=== PATIENT | male | born 1990 | race Caucasian/White ===

== ENCOUNTER → 2017-09-08 | Emergency (ER) | payer BC ==
[~2017-09-08] VITALS: Ht 180.3 cm; Wt 68.0 kg
[~2017-09-08] MED LIST: BACTRIM DS TAB1 EACH PO; CEPHALEXIN500 MG PO; IBUPROFEN600 MG PO; NORCO 5-325 TA1 EACH PO; PENICILLIN V P500 MG PO; TYLENOL325 MG PO; ULTRAM50 MG PO; VENTOLIN HFA18 GM INH
== END ==
LOC: ED 05:58
DX: S61.231A Puncture wound without foreign body of left index finger without damage to nail, initial encounter (principal); L08.9 Local infection of the skin and subcutaneous tissue, unspecified; F17.200 Nicotine dependence, unspecified, uncomplicated; W22.8XXA Striking against or struck by other objects, initial encounter; Z79.899 Other long term (current) drug therapy
CPT/HCPCS: 73140; 87070; 87077; 87186; 90471; 90715; 99283

== ENCOUNTER 2017-10-14 17:41 | Emergency (ER) | payer BC ==
[~2017-10-14] VITALS: Ht 180.3 cm; Wt 69.8 kg
[2017-10-15] MEDS ORDERED: HYDROCODON-ACE1 EA10 PO ×2 (10:15)
== END 2017-10-14 21:37 | disposition home or self-care (01) ==
LOC: ED 17:41
DX: S61.233A Puncture wound without foreign body of left middle finger without damage to nail, initial encounter (principal); L08.9 Local infection of the skin and subcutaneous tissue, unspecified; F17.200 Nicotine dependence, unspecified, uncomplicated; W22.8XXA Striking against or struck by other objects, initial encounter
CPT/HCPCS: 85025; 87070; 87077; 87184; 96365; 99283; J3370

== ENCOUNTER 2017-10-15 10:01 | Inpatient (IN) | payer BC ==
[~2017-10-15] VITALS: Ht 180.3 cm; Wt 69.8 kg
[2017-10-15] MEDS ORDERED: HYDROCODON-ACE1 EA10 PO ×2 (10:15)
--- NOTE | 2017-10-15 12:20 | NUR ---
PT TO FLOOR. AIR TRAFFIC CONTROL SPECIALIST CHECKED IN PT. IVF STARTED. LUNCH ORDERED. HX AND SHORT ADMIT DONE.
--- NOTE | 2017-10-15 13:34 | NUR ---
PT RATES PAIN 7/10 IN HAND. OUTLINED AREA CONTINUES TO BE RED. FINGER QUIT SWOLLEN. NO LONGER LEAKING. STATES THAT IT WAS WHEN IT WAS COVERED AT HOME WITH BACITRACIN.
--- NOTE | 2017-10-15 15:56 | NUR ---
CALLED DR JOHNSON REGARDING PAIN NOT WELL CONTROLLED BY [facility]. CHANGED ORDER TO 1 TAB 10\325 Q4 PRN FOR PAIN.
--- NOTE | 2017-10-15 16:15 | NUR ---
PT'S VITALS AND I&O'S TAKEN AND DOCUMENTED. PT STATES NO NEEDS AT THIS TIME. INFORMED PT TO LET ME KNOW IF HE NEEDS ANYTHING. CALL LIGHT IS IN REACH.
--- NOTE | 2017-10-15 17:06 | NUR ---
PT REPORTS PAIN OF 7/10 IN LEFT HAND. PAIN MED ADMINISTERED. PT RESTING COMFORTABLY IN BED WITH FAMILY IN ROOM.
--- NOTE | 2017-10-15 17:26 | NUR ---
PT GIVEN 1 TAB NORCO. REDNESS HAS INCREASED PAST LINE IN UNDERARM AREA. PT STATES THAT THE FINGER ITSELF FEELS LESS TIGHT THOUGH. MULTIPLE FAMILY MEMBERS IN ROOM.
--- NOTE | 2017-10-15 18:13 | NUR ---
ANTIOBIOTIC ADMINISTERED. PT REPORTS LEFT HAND IS ONLY PAINFUL WHEN TOUCHED. EATING DINNER WITH FAMILY IN ROOM.
--- NOTE | 2017-10-15 18:24 | NUR ---
PT ADMITTED THIS AFTERNOON. REDDENED AREA OUTLINED ON LEFT ARM. GIVEN NORCO X2 FOR PAIN. INDEPENDENT IN ROOM. FAMILY FREQUENTLY IN ROOM.
--- NOTE | 2017-10-15 20:55 | NUR ---
PT RESTING, NO C/O PAIN, KPAD AT BEDSIDE TABLE. LEFT ARM ELEVATED INPILLOWS, AREA RED, MARKED. NEW RX FOR NITCOTINE PATCHA ND LOZENGERS OBTAINED VIA PHONE FROM DR JOHNSON.
--- NOTE | 2017-10-15 23:06 | NUR ---
MEDICATED WITH NORCO 10/325 1 TAB, C/O 03/05 LEFT HAND. LEFT HAND REDDENED, EDGES MARKED, EDEMA L HAND, GOOD CMS. WARM PAD TO ARM. NO OTHER REQUESTS
--- NOTE | 2017-10-16 01:34 | NUR ---
awake, watching tv. left vincent redness, hand edema w/o changes, warm pad off at this requests, hand elevatred in pillows, no c/o pain. in room
--- NOTE | 2017-10-16 06:10 | NUR ---
PT SLEPT MOST OF THIS SHIFT. wAS MEDICATED WITH nORCO 10/325 X1. PAIN RELIEF STATED. ivf INFUSING, NO C/O ADVERSE REACTION TO VANCOMYCIN AND UNASYN IV ABX. LEFT HAND STILL EDEMATOUS, 1+. NON PITTING, REDNESS FROM TIP OF FINGERS TO ABOVE AXILLARY AREA. AREA MARKED. TENDER AND WARM TO TOUCH, RED-PINKISH COL[place]. ELEVATED WITH PILLOWS AND K PAD TO AREA . KPAD OFF AT THIS TIME. USED FOR SEVERAL HOURS LAST NIGHT. HAD NICOTINE LOZENGERS, PT STATED HE WOULD RATHER TRTY NICORETTE GUM THIS AM. PT WILL RECEIVE NICORETTE PATCH THIS AM. NPO SINCE MIDNITE, NO FURTHER REQUESTS
--- NOTE | 2017-10-16 08:20 | NUR ---
pt complained of pain 6/10in left arm. gave 1 tab norco 10/325 po with small sip of water.
--- NOTE | 2017-10-16 09:26 | NUR ---
PT RESTING IN BED WITH IN ROOM.
--- NOTE | 2017-10-16 10:19 | NUR ---
PT STATES THAT HIS ONLY NEED IS TO SEE THE DOCTOR. PT HAS NO OTHER NEEDS AT THIS TIME. CALL LIGHT IS IN REACH.
--- NOTE | 2017-10-16 10:36 | CONS ---
[facility] [address], [place] [address] Signed DATE OF CONSULTATION: HISTORY OF PRESENT ILLNESS: Mr. Thomson is a 27-year-old white male, who apparently had a blunt force/penetrating injury to his left long finger in the midportion of the middle phalanx about a week ago with a Dodson drill bit. He apparently was in the emergency room a day or two ago. He was given some vancomycin as he had recently been presented to the ER with questionable MRSA in another area. An attempt apparently was made to michell the finger and minimal if any fluid was recovered. It was sent for culture, but nothing has grown as of yet. Be that as it may, he presented again today because he thinks the swelling and the redness are getting worse. He denies any other intercurrent injury. Says he is unaware that he has had a fever, chills, or any other systemic symptoms. PAST MEDICAL HISTORY: With the exception of his previous infections, he says he is in good general health. He says he does not take any medications other than occasional ibuprofen, and he is unaware that he has any medical allergies. REVIEW OF SYSTEMS: Negative. PHYSICAL EXAMINATION: GENERAL: He is alert, oriented, really in no distress. HEAD, EARS, EYES, NOSE, AND THROAT: Unremarkable. NECK: Supple. CHEST: Clear. CARDIAC: Reveals a regular rhythm. ABDOMEN: Benign. EXTREMITIES: His left long finger has an area of redness and swelling over the radial aspect of the midportion of the soft tissue overlying the middle phalanx. There is really no fluctuance, although there is some swelling here. There is no tenderness over the flexor tendon sheath. He is actually able to flex and extend his finger at the MCP, the PIP, and the DIP joint without any significant increase in his discomfort. He has good sensation distally in the finger. He does have significant cellulitis spreading up his arm almost to the area of the lateral epicondylar area. Again, he has a full range of motion of the elbow, wrist, and hand. IMPRESSION: He has a penetrating wound with a secondary cellulitis. I have told at the present time he does not appear to have flexor tenosynovitis. I told him that I will plan on admitting him, keeping him on the IV antibiotics, and see how he does over the next day Electronically Signed By: GRADY JOHNSON MD 10/16/17 1036 PATIENT NAME: JADA THOMSON CONSULTATION DATE OF : 89 PHYSICIAN: GRADY JOHNSON MD REPORT #: [id number] REPORT IS CONFIDENTIAL AND NOT TO BE RELEASED WITHOUT AUTHORIZATION [facility] [address], [place] [address] Signed or two. I told him that if he deteriorates, he may require surgical intervention, but at the moment, it does not appear that that is the case based on today's examination. MD AGGIE WeaverB/EMAL /[id number] Electronically Signed By: GRADY JOHNSON MD 10/16/17 1036 PATIENT NAME: JADA THOMSON CONSULTATION DATE OF : 89 PHYSICIAN: GRADY JOHNSON MD REPORT #: [id number] REPORT IS CONFIDENTIAL AND NOT TO BE RELEASED WITHOUT AUTHORIZATION
--- NOTE | 2017-10-16 13:27 | NUR ---
landscape laborer in room with pt.
--- NOTE | 2017-10-16 13:35 | NUR ---
pt complained of pain in left arm 03/05. gave 1 tab norco 10/325 po.
--- NOTE | 2017-10-16 15:11 | NUR ---
pt resting in bed. rating pain 3/10 in left arm. family at bedside.
--- NOTE | 2017-10-16 17:39 | NUR ---
PTS IV STARTED LEAKING. DC'D IV AND STARTED NEW IV IN RIGHT FOREARM. PT TOLERATED WELL.
--- NOTE | 2017-10-16 17:54 | NUR ---
pt complained of pain 03/05. gave 1 tab norco 10/325 po. redness in left arm improving. continues to elevated and use k pad.
--- NOTE | 2017-10-16 18:27 | NUR ---
PT SET UP FOR SHOWER. NO OTHER NEEDS AT THIS TIME. INFORMED PT TO CALL WHEN FINISHED.
--- NOTE | 2017-10-16 18:50 | NUR ---
redness improving to left arm. pt continues to elevated and use k pad. norco given for pain. possible dc home tomorrow on oral antibiotics.
--- NOTE | 2017-10-16 21:14 | NUR ---
visiting, left arm decreased redness and decreased edema l hand. new iv site rfa intact, infusing ivf w/o problems, no c/o pain at this time. coop with assessment
--- NOTE | 2017-10-16 22:35 | NUR ---
medicated with norco 10?325 po, c/o 03/05 left arm and left mid finger pain. Visiting with family
--- NOTE | 2017-10-16 22:40 | NUR ---
WARM BLANKET GIVEN ON REQUEST
--- NOTE | 2017-10-17 00:02 | NUR ---
Awakes easily, pain relief stated, left arm elevated in pillows, decreased redness and edema. no other requests
--- NOTE | 2017-10-17 05:55 | NUR ---
medicaTED WITH NORCO 10/325 C/O LEFT HAND AND ARM PAIN.
--- NOTE | 2017-10-17 06:03 | NUR ---
PT RESTING, NO RESP DISTRESS. HAS BEEN MEDICATED WITH NORCO 10/325MG TWO TIMES, WITH GOOD PAIN RELIEF. PAIN MEDS EFFECTIVE. LEFT ARM ELEVATED WITH PILLOWS, DECREASED REDNESS, LEFT HAND AND LEFT MID FINGER DISTAL PHALANGES AREA EDEMATOUS, TENDER. NO DRAINAGE. IVF PATENT, INFUSING LR AT 100CC/HR, VANCOMYCIN AND UNASYN ABX. TOLERATING WELL, NO C/O ADVERSE REACTION TO ABX INFUSING. PT ON REGULAR DIET, ATE PIZZA WITH FRIENDS, NO EMESIS, USED K PAD FOR ABOUT ONE HOUR, NO C/O PAIN LEFT ARM
--- NOTE | 2017-10-17 08:25 | NUR ---
LEFT HAND REDNESS SIGNIFICANTLY IMPROVED FROM MARKED EDGES. NO REDNESS ON ARM. MIDDLE FINGER OF LEFT HAND SWOLLEN AND RED AROUND PUNCTURE HARRISON. SOME REDNESS TO LEFT HAND AND SWELLING. TENDER TO TOP OF HAND. PAIN 4/10 NOW. SITTING UP AT EDGE OF BED EATING BREAKFAST NOW. VISITORS AT BEDSIDE.
--- NOTE | 2017-10-17 10:21 | NUR ---
PATIENT TOOK A SHOWER THIS MORNING. INDEPENDENT. ATE BREAKFAST. HIS FRIENDS BROUGHT HIM SOME FOOD FOR AND EARLY LUNCH. BROUGHT HIM MORE ICE WATER.
[2017-10-17] MEDS ORDERED: CLEOCIN HCL300 MG PO ×2 (12:41)
--- NOTE | 2017-10-20 07:21 | DS ---
[facility] [address], [place] [address] Signed ADMISSION DATE: 10/15/2017 DISCHARGE DATE: 10/17/2017 FINAL DIAGNOSIS AT THE TIME OF DISCHARGE: Cellulitis left hand and arm following a culture wound. HISTORY OF PRESENT ILLNESS: The patient is a young male, who was doing well until couple of days before admission. He indicates he was helping a friend do some construction work when he penetrated the mid portion of his left long finger with a tip of Dodson screwdriver head. He was actually seen in the emergency room I think a day or two before admission with some redness and swelling. Attempt was made to do an I and D in the ER, which apparently was not fruitful. He was placed on antibiotics and sent home. He then returned on the with worsening redness and swelling. At that time, he appeared to have cellulitis in his hand, his arm, his forearm, and all the way up into his axilla. There is no evidence of flexor tenosynovitis. HOSPITAL COURSE: The patient was admitted, placed on vancomycin and Unasyn. His cellulitis rapidly resolved. By today, all the redness is gone. He has minimal discomfort on the dorsal aspect of his left hand and in his axilla, but there is no significant swelling. He has full a range of motion of all of his fingers and again there is no tenderness over the flexor tendon sheath and nothing to suggest a flexor tenosynovitis. He is being discharged home today on oral Cleocin. He apparently recently has had several infections, which have typically all been MSSA. We will ask him to follow up with us in a week to 10 days and I told him if things deteriorate, he should return sooner. Grady Johnson MD WFB/MODL /[id number] Electronically Signed By: GRADY JOHNSON MD 10/20/17 0721 PATIENT NAME: JADA THOMSON TACOS DISCHARGE SUMMARY DATE OF : 89 PHYSICIAN: GRADY JOHNSON MD REPORT #: [id number] REPORT IS CONFIDENTIAL AND NOT TO BE RELEASED WITHOUT AUTHORIZATION
== END 2017-10-17 13:00 | disposition home or self-care (01) | DRG 603 ==
LOC: ED 10:01 → MS 11:59
PROVIDERS: ADMIT Orthopaedic Surgery
DX: L03.012 Cellulitis of left finger (principal); S61.233D Puncture wound without foreign body of left middle finger without damage to nail, subsequent encounter; W31.1XXD Contact with metalworking machines, subsequent encounter
CPT/HCPCS: 36415; 73130; 80048; 80202; 85025; 96365; 96367; 99285; J0295; J3370; J7120

== ENCOUNTER 2025-04-11 08:59 | Emergency (ER) | payer OTHER ==
[~2025-04-11] VITALS: Ht 180.3 cm; Wt 85.0 kg
[~2025-04-11 08:59] MED LIST changes: +CLEOCIN HCL300 MG PO; +HYDROCODON-ACE1 EA10 PO
[2025-04-11 10:04] VITALS: BP 151/98
== END 2025-04-11 10:04 | disposition home or self-care (01) ==
LOC: ED 08:59
DX: S81.841A Puncture wound with foreign body, right lower leg, initial encounter (principal); F17.200 Nicotine dependence, unspecified, uncomplicated; W45.8XXA Other foreign body or object entering through skin, initial encounter
CPT/HCPCS: 73590; 99283

== ENCOUNTER 2025-04-22 08:54 | Day surgery (SDC) | payer OTHER ==
[~2025-04-22] VITALS: Ht 182.9 cm; Wt 85.0 kg
[~2025-04-22 08:54] MED LIST changes: +CEFAZOLIN SODIUM 2 GM/20 ML SYR IV SCH; +IBLOOD GLUCOSE TEST STRIP 1 EA TEST VI PRN; +LACTATED RINGER'S 1,000 ML IV SCH; +LIDOCAINE HCL 1% 5 ML SDV INJ ONE; +TRANEXAMIC ACID IN NACL,ISO-OS 1,000 MG/100 ML PIGGYBACK IV SCH
[2025-04-22 09:24] VITALS: BP 127/82
[2025-04-22] MEDS ORDERED: TRANEXAMIC ACID IN NACL,ISO-OS 200 ML IV ONE (10:08)
--- NOTE | 2025-04-22 10:14 | NUR ---
DR AVENDAÑO HAS BEEN IN TO TALK WITH PT TRANSEMIC ACID 2 1000MG GIVEN.
[2025-04-22] MEDS ORDERED: fentaNYL citrate 100 MCG/2 ML VIAL ONE (10:23)
[2025-04-22] MEDS ORDERED: MIDAZOLAM HCL 2 MG/2 ML VIAL ONE (10:23)
[2025-04-22] MEDS ORDERED: LIDOCAINE HCL 2% 5 ML SDV ONE (10:24)
[2025-04-22] MEDS ORDERED: KETOROLAC TROMETHAMINE 30 MG/ML VIAL ONE (10:24)
[2025-04-22] MEDS ORDERED: IBLOOD GLUCOSE TEST STRIP 1 EA TEST VI PRN (10:45)
[2025-04-22] MEDS ORDERED: NALOXONE HCL 0.4 MG SYR IV PRN (10:45)
[2025-04-22] MEDS ORDERED: HYDROmorphone HCL 1 MG/ML SYR IV PRN (10:45)
[2025-04-22] MEDS ORDERED: PROCHLORPERAZINE EDISYLATE 10 MG/2 ML VIAL IV PRN (10:45)
[2025-04-22] MEDS ORDERED: fentaNYL citrate 50 MCG/ML SDV IV PRN (10:45)
[2025-04-22] MEDS ORDERED: HYDROCODON-ACE1 EAC8 PO (11:13)
[2025-04-22] MEDS ORDERED: HYDROCODONE/APAP 10/325 1 TAB PO PRN (11:15)
--- NOTE | 2025-04-22 11:26 | NUR ---
04/22/25 1126 Martha Mueller 1110-PT ARRIVES TO PACU, VIA STRETCHER, PT RESPONSIVE TO STIMULI BUTS RESTS W/ EYES CLOSED, VSS ON 6L VIA MASK, RR EVEN AND UNLABORED. 1115-PT AWAKENS EASILY TO VOICE, TITRATD TO RA, VS REMAIN STABLE. PT DENIES PAIN OR NAUSEA. 1125-PT SITTING UP IN BED SIPPING ON JUICE, DENIES NAUSEA BUT C/O SORENESS IN RT CALFM, DENIES NEED FOR PAIN MEDICATION. VSS ON RA.
[2025-04-22 12:08] VITALS: BP 135/86
--- NOTE | 2025-04-22 12:16 | NUR ---
S O AT BS. REQUESTS PAIN RX AND GIVEN AFTER CRACKERS AND JUICE TAKEN. CALL LIGHT IN REACH.
[2025-04-22 12:56] VITALS: BP 115/70
--- NOTE | 2025-04-22 12:58 | NUR ---
UP TO BR USES CRUTCHES HE WANTS TO WBAT STATUS. VOIDS QS. RETURNED TO STRETCHER RATES PAIN 10/05. WANTS TO GO HOME. TAKING FLUIDS WELL.
[2025-04-22] MEDS ORDERED: SEVOFLURANE 250 ML BTL INH ONE (13:09)
--- NOTE | 2025-04-22 13:17 | NUR ---
DC INSTRUCTIONS GIVEN TO PT AND S O. REVIEWED COMPUTER PRINT OUT INSTRUCTIONS AND ENC PT TO RE READ AT HOME AGAIN. DENIES ANY QUESTIONS. JUST WANT TO GO HOME.
--- NOTE | 2025-04-23 08:35 | OR ---
[facility] [address] [place], [place] [address] Signed DATE OF OPERATION: 04/22/2025 SURGEON: Aminata Martinez MD PREOPERATIVE DIAGNOSIS: Metal foreign body, right calf. POSTOPERATIVE DIAGNOSIS: Metal foreign body, right calf. PROCEDURE PERFORMED: Removal of foreign body, right gastroc muscle. IC ENGINEER: Kaye Gonzales PA-C. Kaye was present and critical for all portions of procedure. ANESTHESIA: General. BLOOD LOSS: TOURNIQUET TIME: 14 minutes. SPECIMEN: Metal foreign body. BRIEF HISTORY: Tyler is a 34-year-old gentleman who was splitting wood when a piece of the metal splitting maul flew off injuring his calf. Risks and benefits of operative removal were discussed with him and he elected to proceed. DESCRIPTION OF PROCEDURE: Once consent was obtained, he was taken to the operating room. After adequate anesthesia he was placed on the OR table and placed in well-padded proximal leg tourniquet. The leg was then prepped and draped in a standard sterile fashion exsanguinated using Esmarch bandage and tourniquet inflated to 250 mmHg. The foreign body was localized in a biplanar fashion using the image intensifier. This was proximal Electronically Signed By: AMINATA MARTINEZ MD 04/23/25 0835 PATIENT NAME: TYLER THOMSON OPERATIVE REPORT DATE OF : 89 REPORT #: [id number] PHYSICIAN: AMINATA MARTINEZ MD PCP: NO PRIMARY CARE PHYSICIAN REPORT IS CONFIDENTIAL AND NOT TO BE RELEASED WITHOUT AUTHORIZATION [facility] [address] [facility] [place] [place] [address] Signed and posteromedial to the entrance wound. We localized it and then made a 3 cm incision overlying this area. We then carried it through the skin subcutaneous tissue. There was a rent in the fascia. We followed this down. Under image intensifier guidance, there was a small split in the muscle. This was opened up and the foreign body was found within the medial head of the gastrocs. This was removed atraumatically. This was passed off the table. The wound was copiously irrigated with antibiotic saline. The fascia was closed using 3-0 Monocryl. Subcutaneous tissue with 3-0 Monocryl and the skin with 3-0 Stratafix. Steri-Strips were applied with LiquiBand and dressed with an Acticoat-7 dressing. He was awakened, taken to the recovery room in satisfactory condition. All sponge, needle, and instrument counts were correct. Aminata Martinez MD BA/EMAL /[id number] Copies: ~ Electronically Signed By: AMINATA MARTINEZ MD 04/23/25 0835 PATIENT NAME: TYLER THOMSON OPERATIVE REPORT DATE OF : 89 REPORT #: [id number] PHYSICIAN: AMINATA MARTINEZ MD PCP: NO PRIMARY CARE PHYSICIAN REPORT IS CONFIDENTIAL AND NOT TO BE RELEASED WITHOUT AUTHORIZATION
== END 2025-04-22 13:05 | disposition home or self-care (01) ==
LOC: DS 08:54
PROVIDERS: ATTEND Specialist
PROC: 0KCS0ZZ Extirpation of Matter from Right Lower Leg Muscle, Open Approach (ICD-10-PCS; principal; 2025-04-22 13:05)
DX: S81.841A Puncture wound with foreign body, right lower leg, initial encounter (principal); W45.8XXA Other foreign body or object entering through skin, initial encounter
CPT/HCPCS: 00400; 73560; A9270; J0690; J1885; J2003; J2250; J2405; J2704; J3010; J7121

== ENCOUNTER 2025-08-27 15:35 | Emergency (ER) | payer OTHER ==
[~2025-08-27] VITALS: Ht 182.9 cm; Wt 86.7 kg
[~2025-08-27 15:35] MED LIST changes: -CEFAZOLIN SODIUM 2 GM/20 ML SYR IV SCH; +HYDROCODON-ACE1 EAC8 PO; -IBLOOD GLUCOSE TEST STRIP 1 EA TEST VI PRN; -LACTATED RINGER'S 1,000 ML IV SCH; -LIDOCAINE HCL 1% 5 ML SDV INJ ONE; -TRANEXAMIC ACID IN NACL,ISO-OS 1,000 MG/100 ML PIGGYBACK IV SCH
[2025-08-27] MEDS ORDERED: TETRACAINE HCL 0.5% 4 ML BTL OD SCH (15:45)
[2025-08-27] MEDS ORDERED: HYDROCODONE/ACETA 7.5/325 TAB PO ONE (16:15)
[2025-08-27] MEDS ORDERED: IBUPROFEN 600 MG TAB PO ONE (16:15)
[2025-08-27 16:26] VITALS: BP 138/90
== END 2025-08-27 16:26 | disposition home or self-care (01) ==
LOC: ED 15:35
DX: H57.89 Other specified disorders of eye and adnexa (principal); F17.200 Nicotine dependence, unspecified, uncomplicated
CPT/HCPCS: 99283; A9270